=== PATIENT | female | born 2000 | race Hispanic/Latino ===

== ENCOUNTER 2024-08-11 16:12 | Emergency (ER) | payer BC ==
[~2024-08-11] VITALS: Ht 165.1 cm; Wt 59.4 kg
[2024-08-11] MEDS: LIDOCAINE 1%-EPI 1:100,000 20 ML VIAL IJ SCH (17:31)
[2024-08-11] MEDS: ketaMINE 50MG/ML SYRINGE 50 MG/ML DISP.SYRIN IV ONE (17:31)
[2024-08-11] MEDS: FENTanyl CITRate PF 50 MCG/1 ML 2ML VIAL IVP ONE (17:32)
--- NOTE | 2024-08-11 18:37 | ERN ---
General Chief Complaint: Abscess Stated Complaint: ABSCESS Time Seen by MD: 16:15 History of Present Illness Initial Comments Otherwise healthy 23-year-old female who presents for right gluteus abscess. She reports it has been present for five days to a week but has been enlarging. She has been seen by multiple physicians, she is currently doing warm compresses and taking antibiotics but it appears to be getting worse. She denies any systemic signs or symptoms. No fevers or chills. She is able to stool. Denies Medical or surgical history. Allergies: Coded Allergies: No Known Drug Allergies (Unverified Allergy, Unknown, 08/11/24) Past Medical History Past Medical History: No Pertinent History Past Surgical History: Tonsillectomy Female( History) LMP: Aug 11, 2024 ROS Dictation CONSTITUTIONAL: No chills, no fever, no weakness, no diaphoresis, no malaise. HEAD/FACE: No signs of trauma. EENT: No eye pain, no blurred vision, no tearing, no double vision, no ear pain, no ear discharge, no nose pain, no nasal congestion, no throat pain, no throat swelling, no mouth pain. RESPIRATORY: No cough, no orthopnea, no SOB, no stridor, no wheezing. CARDIOVASCULAR: No chest pain, no edema, no palpitations, no syncope. GASTROINTESTINAL/ABDOMINAL: No abdominal pain, no constipation, no diarrhea, no nausea, no vomiting. GENITOURINARY: No abnormal discharge, no dysuria, no frequent urination, no hematuria. No complaints of pain in the genitals. MUSCULOSKELETAL: Gluteal pain INTEGUMENTARY: No change in color, no change in hair/nails, no dryness, no lesion, no lumps, no rash. NEUROLOGICAL/PSYCH: No anxiety, not depressed, no emotional problem, no headache, no numbness, no pre-existing deficit, no history of seizures, no tremors, no weakness. HEMATOLOGIC/LYMPHATIC: Not anemic, no history of blood clots, no apparent bleeding, no bruising, glands not swollen. All Systems Negative, Except as Noted. Physical Exam Physical Exam Dictation VITAL SIGNS: Reviewed. GENERAL APPEARANCE: Alert, oriented x3, moderate distress due to pain HEAD AND FACE: Non-traumatic. EYES: PERRL, pink conjunctivas, eyelid no trauma, anterior chamber clear. EARS: Pinnas intact and no signs of trauma or erythema. Ear canals clear and no discharge. TMs no erythema. NOSE: No discharge, no bleeding. OROPHARYNX: Mouth normal, teeth no caries, tongue pink. Pharynx clear, no erythema. Tonsils no exudates, no abscesses noted. Mucous membrane moist. NECK: Supple, non-tender, no thyromegaly, no masses, no JVD, no bruits. BREAST: Deferred. CHEST: No tenderness, no crepitus, no paradoxical movement, no retractions. LUNGS: Clear, well-ventilated, symmetric, no rales, no wheezing, no rhonchi, no stridor, good breath sounds bilaterally. HEART: Regular rate, regular rhythm, no murmur, no gallops. VASCULAR: No peripheral edema. ABDOMEN: Soft, positive bowel sounds, nondistended, no guarding, nontender, no rebound, no masses no hepatomegaly, no splenomegaly, no Alonzo's sign, no hernias. RECTAL: Has an abscess approximately 4 in x 1 in over long shape near the right gluteus. It does not go near the anus. It appears superficial. There is some erythema overlying tenderness. GENITAL: Deferred. NEUROLOGICAL: Normal speech, gross motor function intact, gross sensory function intact. MUSCULOSKELETAL: Neck nontender, full range of motion, back nontender, full range of motion. EXTREMITIES: Nontender, full range of motion. SKIN: Color pink, dry, no turgor, no rash, no lacerations, no abrasions, no contusions. LYMPHATICS: Deferred. MDM Patient has a an abscess in the right gluteus area. Does not appear to be a perirectal abscess, it appears to be superficial. Vital signs are stable Differential diagnosis includes superficial abscess, tory anal abscess. Patient has no signs of SIRS or sepsis or vital signs are stable. No labs or imaging indicated. I gave the patient pain dose ketamine and some fentanyl. Injected local lidocaine. I performed an I and D with a 1 in incision. Purulent strained. Patient returned to baseline. We will DC recommend warm baths. Recommend return to emergency department in 48-72 hours for re-evaluation. We will recommend continuing antibiotics. Patient agrees with this plan. ED Course Orders Procedure Category Date Status Time Ketamine 50mg/Ml PHA 08/11/24 Complete Syringe (Ketamine 17:30 Fentanyl Citrate Pf PHA 08/11/24 Complete 0.05 Mg/Ml (Fentanyl 17:30 Lidocaine 1%-Epi PHA 08/11/24 In Process 1:100,000 (Lidocaine 17:30 Current Medications Medications (Trade) Dose Ordered Sig/Chuck Route PRN Reason Start Time Stop Time Status Last Admin Dose Admin Fentanyl Citrate (FENTanyl CITRate PF 50 MCG/ 1 ML 2ML VIAL) 100 mcg ONCE ONCE IVP 08/11/24 17:30 08/11/24 17:31 DC 08/11/24 18:27 Ketamine HCl (ketaMINE 50MG/ ML SYRINGE) 18 mg ONCE ONCE IV 08/11/24 17:30 08/11/24 17:31 DC 08/11/24 17:31 Lidocaine/ Epinephrine (Lidocaine 1%-Epi 1:100,000) 20 ml ONCE IJ 08/11/24 17:30 09/10/24 17:29 08/11/24 17:31 Vital Signs Date Time Temp Pulse Resp B/P (MAP) Pulse Ox O2 Delivery O2 Flow Rate FiO2 08/11/24 18:50 99.3 92 18 107/69 99 Room Air* 0 21 08/11/24 16:56 99.3 100 18 118/65 100 Room Air* 0 21 08/11/24 16:14 99.3 117 18 135/77 100 Room Air Incision and Drainage Incision and Drainage : Site: Right gluteus Blade Size: 11 I & D Procedure: no betadine prep Progress Area was cleaned with Betadine prep. Injected 10 mL of 1% lidocaine Good anesthesia Eleven blade used one inch incision Purulence drained. Complicated abscess Multiple loculations were broken up and drained. I placed approximately 4 in of 1 in packing. Left the tail out. Covered. Minimal blood loss Patient tolerated procedure well Performed by me Dr. Lowry Total time 15 minutes DX & DISP Disposition: Discharge Departure Impression: Primary Impression: Abscess, gluteal, right Condition: Stable Scripts Hydrocodone/Acetaminophen (Hydrocodon-Acetaminophen 5-325) 5 Mg-325 Mg Tablet 1 TAB PO TIDP PRN for pain for 5 Days, #15 TAB 0 Refills Prov: IVIS LOWRY DO 08/11/24 Additional Instructions: You had a gluteal abscess that had an incision and drainage performed here in t he ER. The wound has packing. As we discussed, keep this in his long as possible. I recommend keeping the wound covered with a clean dressing or gauze. Continue with the warm compresses. You can also take warm baths. The wound we will drain. This is normal. Continue with the antibiotics they are currently taking. You can continue taking 800 mg of ibuprofen up to 3 times a day for pain and inflammation. I have prescribed [place] tabs to use as needed for significant pain. You can take this every 6 hours as needed. As we discussed, you will need a wound check in 72 hours or so. You can follow up with your primary doctor or return to the emergency department for a wound check. Please return to the emergency department if you have any concerns. Referrals: SELF,REFERRAL (PCP) IVIS LOWRY DO Aug 11, 2024 18:37
[2024-08-11 18:50] VITALS: BP 107/69; PULSE 92; RESP 18; TEMP 99.3; O2SAT 99
[2024-08-11] MEDS ORDERED: HYDR-4060 PO (18:54)
== END 2024-08-11 19:10 | disposition home or self-care (01) ==
LOC: EDH 16:12
DX: L02.31 Cutaneous abscess of buttock (principal); Z90.89 Acquired absence of other organs
CPT/HCPCS: 99284; 10061; 96374; 96375; J3010; J3490 ×2